=== PATIENT | male | born 1955 | race Caucasian/White ===

== ENCOUNTER 2016-08-04 09:43 | Day surgery (SDC) | payer OTHER ==
[~2016-08-04] VITALS: Ht 177.8 cm; Wt 99.5 kg
[~2016-08-04 09:43] MED LIST: TIOT18CA INH; TIOT4MIS3 INH; TRAM50TA2 PO; [UNRECOGNIZED DRUG - OTHER] INH
[2016-08-04 09:51] VITALS: BP 117/84
[2016-08-04 10:05] LABS: ASPARTATE AMINO TRANSFERASE 14 U/L (15-37); BLOOD UREA NITROGEN 15 mg/dL (7-18)
[2016-08-04] MEDS ORDERED: ASPIRIN 325 MG TABLET EC ONE (10:15)
[2016-08-04] MEDS ORDERED: LIDOCAINE 2%, 20ML ONE (10:15)
[2016-08-04] MEDS ORDERED: MIDAZOLAM 1 MG/ML, 5ML ONE (10:15)
[2016-08-04] MEDS ORDERED: FENTANYL PF 100 MCG/2ML ONE (10:15)
[2016-08-04] MEDS ORDERED: SODIUM CHLORIDE 0.9% 1,000 ML IV SCH (10:17)
[2016-08-04] MEDS ORDERED: ACETAMINOPHEN 325 MG TABLET PO PRN (10:30)
[2016-08-04] MEDS ORDERED: ONDANSETRON 2MG/ML, 2ML IVPush PRN (10:30)
[2016-08-04] MEDS ORDERED: BISACODYL 10 MG SUPP PR PRN (10:30)
[2016-08-04] MEDS ORDERED: BISACODYL 5 MG EC TABLET PO PRN (10:30)
[2016-08-04] MEDS ORDERED: ASPIRIN 325 MG TABLET EC PO ONE (10:30)
[2016-08-04] MEDS ORDERED: ZOLPIDEM 5MG TABLET PO PRN (21:00)
== END 2016-08-04 13:53 | disposition home or self-care (01) ==
LOC: CACL 09:43
PROVIDERS: ATTEND Internal Medicine Cardiovascular Disease
DX: I25.10 Atherosclerotic heart disease of native coronary artery without angina pectoris (principal); E11.9 Type 2 diabetes mellitus without complications; J44.9 Chronic obstructive pulmonary disease, unspecified; G90.09 Other idiopathic peripheral autonomic neuropathy; Z87.891 Personal history of nicotine dependence; M19.90 Unspecified osteoarthritis, unspecified site; Z72.89 Other problems related to lifestyle; Z83.6 Family history of other diseases of the respiratory system
CPT/HCPCS: 36415; 71020; 80048; 80061; 80076; 85025; 85610; 85730; 93005; 93458; 99156; C1760; C1894; J2250; J3010; J3490; Q9967

== ENCOUNTER 2020-07-11 11:57 | Emergency (ER) | payer OTHER ==
[~2020-07-11] VITALS: Ht 177.8 cm; Wt 98.2 kg
[2020-07-11] MEDS ORDERED: PLEASE ENTER HEIGHT AND WEIGHT MC SCH (12:30)
[2020-07-11] MEDS ORDERED: ASPIRIN 81 MG TABLET CHEW PO ONE (12:30)
[2020-07-11 13:09] LABS: BASOPHILS % (AUTO) 1 % (0-1); EOSINOPHILS % (AUTO) 2 % (1-7); LYMPHOCYTES % (AUTO) 29 % (22-44); MEAN CORPUSCULAR HEMOGLOBIN 31.9 pg (27.5-34.5); MEAN CORPUSCULAR HGB CONC 34.5 g/dL (33.2-36.2); MEAN PLATELET VOLUME 7.6 fL (7.4-10.4); MONOCYTES % (AUTO) 8 % (2-9); NEUTROPHILS % (AUTO) 60 % (42-75); PLATELET COUNT 223 x10^3/uL (130-400); RED BLOOD COUNT 4.57 x10^6/uL (4.38-5.82); RED CELL DISTRIBUTION WIDTH 13.9 % (9.4-14.8)
[2020-07-11 13:10] LABS: MD NO
[2020-07-11 13:20] LABS: ALANINE AMINOTRANSFERASE 26 U/L (12-78); ANION GAP 5 mmol/L (5-15); CALCIUM 9.1 mg/dL (8.5-10.1); CHLORIDE 110 mmol/L (98-107); CREATININE 1.12 mg/dL (0.7-1.3)
--- NOTE | 2020-07-11 13:20 | NUR ---
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
[2020-07-11 13:24] LABS: ALKALINE PHOSPHATASE 76 U/L (45-117); BILIRUBIN,TOTAL 0.8 mg/dL (0.2-1.0); TOTAL PROTEIN 7.1 g/dL (6.4-8.2); TROPONIN I < 0.015 ng/mL (0.000-0.045)
[2020-07-11] MEDS ORDERED: simvastatin (14:12)
[2020-07-11] MEDS ORDERED: ISOS60TA36 PO (14:12)
--- NOTE | 2020-07-11 14:20 | NUR ---
PT STATES HE HAS HAD CHEST PRESSURE FOR MONTHS. RECENTLY SAW ROSA AND WAS STARTED ON IMDUR. PT STATES HE WILL BE FOLLOWING UP WITH CARDS AND THAT THEY WILL THEN DO A STRESS TEST. PT AWAITING SECOND TROPONIN.
[2020-07-11 14:23] LABS: TROPONIN I < 0.015 ng/mL (0.000-0.045)
--- NOTE | 2020-07-11 14:59 | NUR ---
ASSUMED CARE OF PATIENT. REPORT GIVEN FROM ARRON PETERSON
--- NOTE | 2020-07-11 15:11 | NUR ---
PER WINNIE RUSSELL NO ASPIRIN NEEDED.
[2020-07-11 15:24] VITALS: BP 115/73
== END 2020-07-11 15:26 | disposition home or self-care (01) ==
LOC: ED 13:07
DX: R07.2 Precordial pain (principal); I25.2 Old myocardial infarction; I25.10 Atherosclerotic heart disease of native coronary artery without angina pectoris; Z87.891 Personal history of nicotine dependence
CPT/HCPCS: 36415; 71045; 80053; 84484; 85025; 93005; 99285